=== PATIENT | male | born 1985 ===

== ENCOUNTER 2024-09-10 11:15 | Observation (INO) | payer OTHER ==
[~2024-09-10] VITALS: Ht 188 cm; Wt 88.0 kg
[2024-09-10] MEDS ORDERED: Acetaminophen 500 MG Tab PO ONE (11:25)
[2024-09-10] MEDS ORDERED: Diphth,Pertuss(Acell),Tet Vac 0.5 ML VIAL IM ONE (11:25)
[2024-09-10 11:37] LABS: BASOPHILS ABSOLUTE AUTO 0.08 K/mm3 (0.00-0.23); BASOPHILS PERCENT AUTO 1 % (0-2); EOSINOPHILS ABSOLUTE AUTO 0.08 K/mm3 (0.00-0.68); EOSINOPHILS PERCENT AUTO 1 % (0-6); Hematocrit 45.4 % (37.0-53.0); Hemoglobin 14.8 g/dL (13.5-17.5); IMMATURE GRAN ABSOLUTE AUTO 0.09 K/mm3 (0.00-0.10); IMMATURE GRAN PERCENT AUTO 1 % (0-1); LYMPHOCYTES ABSOLUTE AUTO 2.34 K/mm3 (0.84-5.20); LYMPHOCYTES PERCENT AUTO 21 % (21-46); MONOCYTES ABSOLUTE AUTO 0.56 K/mm3 (0.16-1.47); MONOCYTES PERCENT AUTO 5 % (4-13); Mean Corpuscular HGB 33.3 pg (26.0-34.0); Mean Corpuscular HGB Conc 32.6 g/dL (31.5-36.5); Mean Corpuscular Volume 102 fL (80-100); Mean Platelet Volume 11.1 fL (9.1-12.4); NEUTROPHILS PERCENT AUTO 72 % (41-73); Platelet Count 350 K/mm3 (150-400); RDW Coefficient Variation 12.3 % (11.7-14.2); RDW Standard Deviation 46.5 fL (35.1-46.3); Red Blood Cell Count 4.44 M/mm3 (4.30-5.90); White Blood Cell Count 11.35 K/mm3 (4.00-11.30)
[2024-09-10 11:59] LABS: Albumin, Blood 4.5 g/dL (3.4-5.0); Albumin/Globulin Ratio 1.2 (0.8-1.8); Bilirubin, Total 0.9 mg/dL (0.1-1.0); Bun/Creatinine Ratio 9.9 (12.0-20.0); Calcium, Blood 9.7 mg/dL (8.5-10.1); Creatinine, Blood 0.91 mg/dL (0.60-1.20); Globulin, Blood 3.6 g/dL (2.2-4.0); Total Protein, Blood 8.1 g/dL (6.4-8.2)
[2024-09-10] MEDS ORDERED: LORazepam 2 MG/ML 1ML Injection ONE (12:41)
[2024-09-10] MEDS ORDERED: LORazepam 2 MG/ML 1ML Injection IV ONE ×2 (12:45→15:00)
[2024-09-10] MEDS ORDERED: levETIRAcetam 2,000 MG in NS 100 ML IV SCH (13:00)
[2024-09-10 13:01] LABS: Base Excess Venous -21.9 mmol/L; Bicarbonate Venous 9.7 mmol/L (24.0-30.0); PCO2 Venous 43.2 mmHg (38-42)
[2024-09-10 13:02] LABS: pH Blood Venous 6.97 (7.34-7.37)
[2024-09-10] MEDS ORDERED: Ondansetron HCl 2 MG / ML 2ML Vial IV PRN (14:10)
[2024-09-10] MEDS ORDERED: FLU VACC TS2024-25(6MOS UP)/PF 45 MCG/0.5 ML SYRINGE IM ONE (14:10)
[2024-09-10] MEDS ORDERED: Magnesium Hydroxide Conc 10 ML UDC PO PRN (14:10)
[2024-09-10] MEDS ORDERED: NS 1,000 ML IV SCH (14:10)
[2024-09-10] MEDS ORDERED: LORazepam 2 MG/ML 1ML Injection IV PRN (15:00)
[2024-09-10 17:21] VITALS: BP 135/88
[2024-09-10] MEDS ORDERED: FentaNYL Citrate 50 MCG/ML 2 ML Injection IV PRN (17:55)
[2024-09-10] MEDS ORDERED: Acetaminophen 325 MG TABLET PO PRN (17:55)
[2024-09-10 19:32] VITALS: BP 122/68
--- NOTE | 2024-09-10 20:32 | NUR ---
ADMIT NOTE PATIENT BROUGHT UP FROM ED DROWSY. NS RUNNING 150 ML/HR TO LEFT FOREARM. SKIN INTACT APART FROM BRUISING TO LEFT KNEE AND LEFT UPPER LATERAL ARM. LARGE BUMP NOTED AROUND BRUISING TO LEFT UPPER ARM, DR. SHERMAN NOTIFIED AND ORDERED X-RAY AND PAIN MEDICATION PATIENT REPORTED PAIN TO LEFT ARM 5/10. PRN ATIVAN AVAILABLE FOR SEIZURES. UPPER RAILS PADDED. BEDREST WITH BATHROOM PRIVILIGES. URINAL PROVIDED. GASH TO TONGUE FROM SEIZURE.
[2024-09-11] MEDS ORDERED: levETIRAcetam 1,000 MG in NS 100 ML IV SCH (01:00)
[2024-09-11 03:25] VITALS: BP 129/79
[2024-09-11 04:38] LABS: U Amphetamine Screen Not Detected; U Barbituate Screen Not Detected; U Benzodiazapine Screen DETECTED; U Buprenorphine Screen Not Detected; U Cannabinoids Screen DETECTED; U Cocaine Screen Not Detected; U Methadone Screen Not Detected; U Methamphetamine Screen Not Detected; U Opiates Screen Not Detected; U Oxycodone Screen Not Detected; U Phencyclidine Screen Not Detected
--- NOTE | 2024-09-11 05:15 | NUR ---
Pt is A&Ox4, very drowsy this shift, medicated 1x w/tylonel for c/o L shoulder & R wrist pain, VSS, sleeping at this time. SO at bedside this shift and came out into lazar screaming at an RN passing by that she pressed luis enrique call light 2 hours ago and no one was responding. The nurse reported that visitor was verbally agressive and unable to be calmed. Charge nurse, Nisha, intervened after hearing conversation and walked visitor back to room and showed her the button for call light. This RN came into room as this was happening; SO was able to be calmed and understood why calls went unanswered (she was not using the right button). Fany GARNICA also came to speak with SO, she was no longer verbally abusive with any other staff members.
[2024-09-11 07:18] LABS: Albumin, Blood 3.6 g/dL (3.4-5.0); Albumin/Globulin Ratio 1.3 (0.8-1.8); Bilirubin, Total 1.6 mg/dL (0.1-1.0); Bun/Creatinine Ratio 8.2 (12.0-20.0); Calcium, Blood 8.5 mg/dL (8.5-10.1); Creatinine, Blood 0.86 mg/dL (0.60-1.20); Globulin, Blood 2.7 g/dL (2.2-4.0); Potassium, Blood 3.3 mmol/L (3.5-5.5); Total Protein, Blood 6.3 g/dL (6.4-8.2)
[2024-09-11 07:44] VITALS: BP 106/70
[2024-09-11] MEDS ORDERED: Potassium Chloride 20 MEQ TabCR PO ONE (08:05)
[2024-09-11] MEDS ORDERED: Lidocaine 2% Viscous Soln 20 ML,Nystatin 100,000 Unit/ml Susp 20 ML,Mag Hydrox/Al Hydro... MT PRN (10:05)
[2024-09-11] MEDS ORDERED: Tylenol325 MG PO (14:51)
[2024-09-11] MEDS ORDERED: [UNRECOGNIZED DRUG - OTHER] PO (14:53)
[2024-09-11] MEDS ORDERED: ROWEEPRA XR750 MG PO (14:54)
--- NOTE | 2024-09-11 15:32 | NUR ---
DISCHARGE NOTE PT DISCHARGED HOME AT 1528. PT PROVIDED W/ VERBAL AND WRITTEN INSTRUCTIONS AND REPORTED UNDERSTANDING. PT A&OX4, VSS, AMB IND, TOLERATING PO, VOIDING, AND DENIED PAIN. HARD SCRIPT GIVEN FOR EEG. BELONGINGS WERE RETURNED. PT ESCOURTED OUT VIA W/C BY LGIIA WOODWARD.
== END 2024-09-11 11:53 | disposition home or self-care (01) ==
LOC: ER 11:15 → MEDS 11:16 → ERHOLD 11:16 → MEDS 17:02
PROVIDERS: Emergency Medicine; ADMIT Internal Medicine
DX: G40.909 Epilepsy, unspecified, not intractable, without status epilepticus (principal); E87.20 Acidosis, unspecified; R65.10 Systemic inflammatory response syndrome (SIRS) of non-infectious origin without acute organ dysfunction
CPT/HCPCS: 36415; 70450; 70551; 73060; 80053; 82803; 83605; 85025; 90471; 90715; 93005; 93010; 96361; 96365; 96366; 96375; 96376; 99285-25; A9270; G0378; J1953; J2060; J7030